=== PATIENT | female | born 1980 | race African-American/Black ===

== ENCOUNTER 2020-08-05 18:41 | Emergency (ER) | payer OTHER ==
[2020-08-05 20:03] LABS: Bilirubin Negative (Negative); Blood, Urine Negative (Negative); Glucose, Urine (Dipstick) Negative (Negative); Ketone, Urine Negative (Negative); Leukocyte Negative (Negative); Nitrite Negative (Negative); Protein, Urine (Dipstick) Negative (Neg-Trace); Urobilinogen 0.2 mg/dL (Less than 2)
[2020-08-05 20:09] LABS: Clarity SL HAZY (Clear); Pregnancy Test - Urine (BHCG) Negative (Negative); Pregu Control Background? CLEAR/WHITE (CLR/WHITE); Pregu Control Bar Appear? YES (CONTROL BAR); Specific Gravity 1.027 (1.002-1.036); Specific Gravity, Urine 1.027 (1.005-1.030)
--- NOTE | 2020-08-05 21:11 | CT ---
Exam: Abdomen CT without contrast Pelvic CT without contrast HISTORY: Sudden right low back pain COMPARISON: None FINDINGS: Abdomen CT: Lung bases:Clear Heart size: Normal heart size. No significant pericardial fluid Aorta: Normal caliber. No periaortic fat stranding Solid organs: Limited evaluation by the lack of intravenous contrast illustration. Grossly no solid o rgan abnormality. Lymph nodes: No gastrohepatic, retrocrural or periportal lymphadenopathy Gallbladder: Contracted due to nonfasting state. Mesentery: No mass, lymphadenopathy, free air or free fluid Kidneys: Punctate nonobstructing 1 mm calculus in the right upper pole calyx. Bilaterally no hydronep hrosis. No evidence of hydroureter, periureteral fat stranding or ureterolithiasis. There are calcifications adjacent the course of left and right ureter. Incompletely evaluated hypodensity in th e right renal cortex measures 0.8 cm. Alimentary canal: Limited evaluation. No evidence of bowel obstruction. Normal caliber small bowel lo ops. Scattered fecal material in a nondistended, nondilated colon. Occasional diverticulum. No diverticulitis. Questionable mucosal thickening involving the distal rectum. Appendix is not apprecia tim. No inflammation along the cecal apex. Abdominal wall: Small umbilical hernia containing mesenteric fat CT PELVIS: No mass, adenopathy, free air or free fluid. Grossly unremarkable reproductive organs. Urinary bladder: Decompressed. Grossly no abnormality Osseous structures: No lytic or blastic lesions. Pseudoarthrosis of the left L5 ala and the adjacent sacrum IMPRESSION: 1. Nonobstructing right intrarenal calculus. Bilaterally no evidence of obstructive uropathy 2. Possible proctitis. Correlate clinically.
== END 2020-08-05 21:55 | disposition home or self-care (01) ==
LOC: NAV ERS 18:41
DX: N20.0 Calculus of kidney (principal)
CPT/HCPCS: 74176; 81003; 81025